=== PATIENT | female | born 1990 | race Caucasian/White ===

== ENCOUNTER 2020-08-01 19:28 | Emergency (ER) | payer OTHER ==
[2020-08-01] MEDS ORDERED: IBUPROFEN800 MG PO (19:43)
== END 2020-08-01 20:30 | disposition home or self-care (01) ==
LOC: ER1 19:28
DX: S90.31XA Contusion of right foot, initial encounter (principal); W22.8XXA Striking against or struck by other objects, initial encounter; Y92.830 Public park as the place of occurrence of the external cause
CPT/HCPCS: 73610; 73630; 99283